=== PATIENT | female | born 1975 | race Caucasian/White ===

== ENCOUNTER 2017-07-22 10:55 | Outpatient (CLI) | payer OTHER | END 2017-07-22 10:56 | disposition home or self-care (01) | LOC: BICMAMMO 10:55 | PROVIDERS: ATTEND Obstetrics & Gynecology | DX: Z12.31 Encounter for screening mammogram for malignant neoplasm of breast (principal); R92.1 Mammographic calcification found on diagnostic imaging of breast | CPT/HCPCS: 77063; 77067 ==

== ENCOUNTER 2017-12-01 06:36 | Day surgery (SDC) | payer OTHER ==
--- NOTE | 2017-12-01 10:05 | OP ---
DATE OF PROCEDURE: 12/01/2017 SURGEON: Austin Tony M.D. PREOPERATIVE DIAGNOSES: 1. Recent diarrheal illness. 2. Right lower quadrant pain. 3. History of Crohn's disease. 4. Recent fecal calprotectin was negative. 5. She has indirect hyperbilirubinemia. Iron is 134, ferritin 9. Normal CBC, normal sed rate, norm al CMP. Stools negative for C. difficile infection. There was an overgrowth normal tara. POSTOPERATIVE DIAGNOSES: 1. A 5 mm polyp in the rectum removed by snare polypectomy. 2. Normal colon, otherwise. 3. Normal anastomosis. 4. Normal terminal ileum. 5. No signs of active Crohn's. RECOMMENDATIONS: Consider pelvic ultrasound or lower abdominal imaging to follow up on right lower q uadrant pain. This may be a uterine or ovarian in origin. It does not seem she has any active Crohn 's at this time. She can follow up in my office in 6 weeks. ANESTHESIA: TIVA. PROCEDURE IN DETAIL: After the patient was informed of the risks, benefits, and possible complicatio ns of endoscopy including perforation, bleeding, reactions to medication and aspiration, informed con sent was obtained. The patient was brought to the endoscopy suite where she was sedated in gradual f ashion. Once she was comfortable a rectal exam was performed which was normal. The endoscope was ad vanced into the anal canal through the colon to the cecum was identified by anastomosis at the ileum. This was normal. It was traversed, distal ileum for 20 cm was normal. The colon was normal except for 1 polyp in the rectum which was 5 mm in size, removed by hot snare polypectomy and submitted to pathology.
[2017-12-01] MEDS ORDERED: PROPOFOL 200 MG/20 ML VIAL ONE (14:57)
== END 2017-12-01 10:18 | disposition home or self-care (01) ==
LOC: SDC 06:36
PROVIDERS: ATTEND Internal Medicine Gastroenterology
PROC: 0DBP8ZX Excision of Rectum, Via Natural or Artificial Opening Endoscopic, Diagnostic (ICD-10-PCS; principal; 2017-12-01)
DX: K62.1 Rectal polyp (principal); Z88.5 Allergy status to narcotic agent
CPT/HCPCS: 88305; J2704

== ENCOUNTER 2018-06-18 08:59 | Emergency (ER) | payer OTHER ==
[2018-06-18] MEDS ORDERED: Dicyclomine 20 MG TAB ONE (10:14)
[2018-06-18] MEDS ORDERED: Ketorolac Tromethamine 30 MG/ML VIAL ONE (10:14)
[2018-06-18 10:15] LABS: #Basophils 0.1 thou/uL (0.0-0.2); #Eosinphils 0.3 thou/uL (0.0-0.7); #Lymphocytes 3.1 thou/uL (1.20-3.40); #Monocytes 0.5 thou/uL (0.11-0.59); #Neutrophils 5.5 thou/uL (1.40-6.50); %Basophils 0.5 % (0.0-1.0); %Eosinophils 3.3 % (0.0-10.0); %Lymphocytes 32.8 % (21.0-51.0); %Monocytes 5.7 % (0.0-10.0); %Neutrophils 57.7 % (42.0-75.0); Hemoglobin 13.5 g/dL (12.0-16.0); Mean Corpuscular HGB CONC 34.2 g/dL (32.0-36.0); Mean Corpuscular Hemoglobin 32.8 pg (27.0-31.0); Mean Corpuscular Volume 96.1 fL (78.0-98.0); Mean Platelet Volume 6.3 fL (7.4-10.4); Platelet Count 310 thou/uL (130-400); RBC Distribution Width 11.1 % (11.5-14.5); White Blood Cell (WBC) Count 9.5 thou/uL (4.8-10.8)
[2018-06-18 10:18] LABS: Bilirubin Negative (Negative); Blood, Urine Moderate (Negative); Clarity CLEAR (Clear); Glucose, Urine (Dipstick) Negative (Negative); Leukocyte Negative (Negative); Nitrite Negative (Negative); Protein, Urine (Dipstick) Negative (Neg-Trace); Specific Gravity, Urine 1.022 (1.002-1.036); Urobilinogen 0.2 mg/dL (0.2-1.0)
[2018-06-18 10:21] LABS: Bacteria/HPF None Seen HPF (None Seen); Hyaline Casts/LPF 0-3 HYALINE CAST LPF (0-3 Hyaline); Pathc Cast-AUWi Flag 0.43 (0-2.49); Squamous Epithelial 0-3 HPF (0-3); WBC/HPF 0-3 HPF (0-3)
[2018-06-18 10:35] LABS: ALT (SGPT) 16 U/L (8-55); AST (SGOT) 23 U/L (5-34); Albumin 4.6 g/dL (3.5-5.0); Alkaline Phosphatase 69 U/L (40-150); Anion Gap 13 mmol/L (10-20); BUN (Urea Nitrogen) 12 mg/dL (7.0-18.7); Bilirubin, Total 2.1 mg/dL (0.2-1.2); Calc. Creatinine Clearance 0 mL/min (70-130); Calcium 9.5 mg/dL (7.8-10.44); Carbon Dioxide 24 mmol/L (22-29); Chloride 106 mmol/L (98-107); Estimated GFR-MDRD 73; Globulin 3.3 g/dL (2.4-3.5); Glucose 100 mg/dL (70-105); Lipase 16 U/L (8-78); Potassium 3.5 mmol/L (3.5-5.1); Protein, Total 7.9 g/dL (6.0-8.3); Sodium 139 mmol/L (136-145)
--- NOTE | 2018-06-18 12:00 | ULT ---
PELVIC ULTRASOUND: Date: 06/18/18 COMPARISON: None. HISTORY: Left lower quadrant pain. TECHNIQUE: Multiplanar Beckford scale sonographic imaging of the pelvis obtained with transabdominal imaging. The ov catherine are assessed with color flow and spectral analysis. FINDINGS: The uterus measures 8.5 x 4.9 x 5.5 cm and demonstrates a normal 1.0 cm endometrial stripe thickness. Left ovary measures 2.3 x 4.2 x 1.9 cm. Right ovary measures 2.6 x 3.1 x 2.0 cm. Normal blood flow n oted within both ovaries. No ovarian or adnexal mass. No free fluid in the pelvis. IMPRESSION: Unremarkable pelvic ultrasound. POS: [facility]
--- NOTE | 2018-06-18 12:18 | CT ---
CT ABDOMEN AND PELVIS WITH IV CONTRAST: Date: 06/18/18 HISTORY: Left lower quadrant pain, Crohn's disease. FINDINGS/IMPRESSION: Comparison made with exam of 08/11/16. The lung bases are clear. The patient is post cholecystectomy. The liver, spleen, pancreas, and adrenal glands are normal. No f ree air, free fluid, or lymphadenopathy seen in the abdomen or pelvis. Uterus and ovaries are present . There is a nonobstructing calculus in the right kidney. A small low density lesion in the right kidne y is consistent with a cyst. There is left-sided hydroureteronephrosis secondary to a 3.0 mm calculus in the left UVJ. IMPRESSION: 3mm obstructing left UVJ calculus. POS: [facility]
== END 2018-06-18 13:39 | disposition home or self-care (01) ==
LOC: ERS 08:59
DX: N13.30 Unspecified hydronephrosis (principal)
CPT/HCPCS: 72192; 74177; 76856; 80053; 81003; 81015; 83690; 84702; 85025; 96361; 96374; J1885